=== PATIENT | female | born 1945 | race Caucasian/White ===

== ENCOUNTER 2019-05-27 11:56 | Emergency (ER) | payer MEDICARE ==
--- NOTE | 2019-05-27 12:19 | ERPHSYRPT ---
- History of Present Illness Time Seen by Provider: 05/27/19 12:19 Historian: patient, family Exam Limitations: no limitations Physician History: 73 y/o obese white female presents with 3 day h/o intermittent diarrhea. pt had mild nausea today. no sig abd pain. no fever. no vomiting. no other individuals with similar sx. pt called her pcp this am. they told her to go to ED for evaluation Timing/Duration: day(s) (3) Quality: other (no pain) Abdominal Pain Onset Location: other (none) Severity of Pain-Max: none Severity of Pain-Current: none Associated Symptoms: diarrhea, nausea, No chest pain, No shortness of breath, No vomiting Previous symptoms: no prior history Allergies/Adverse Reactions: ibuprofen [From Advil] Allergy (Verified 05/27/19 12:27) Penicillins Allergy (Verified 05/27/19 12:27) - Review of Systems Constitutional: No Symptoms Eyes: No Symptoms Ears, Nose, & Throat: No Symptoms Respiratory: No Symptoms Cardiac: No Symptoms Abdominal/Gastrointestinal: Nausea, Diarrhea Genitourinary Symptoms: No Symptoms Musculoskeletal: No Symptoms Skin: No Symptoms Neurological: No Symptoms Psychological: No Symptoms Endocrine: No Symptoms Hematologic/Lymphatic: No Symptoms Immunological/Allergic: No Symptoms All Other Systems: Reviewed and Negative - Past Medical History Pertinent Past Medical History: Yes Neurological History: No Pertinent History Cardiac History: Coronary Artery Disease, Hypertension Respiratory History: Sleep Apnea Endocrine Medical History: Diabetes Type II, Hypothyroidism Musculoskeletal History: Arthritis, Fractures Psycho-Social History: No Pertinent History - Past Surgical History Past Surgical History: Yes Musculoskeletal: Orthopedic Surgery Female Surgical History: Hysterectomy - Social History Drug Use: none - Nursing Vital Signs Nursing Vital Signs: Initial Vital Signs Temperature 98 F 05/27/19 11:57 Pulse Rate 93 H 05/27/19 11:57 Respiratory Rate 18 05/27/19 11:57 Blood Pressure 149/95 05/27/19 11:57 O2 Sat by Pulse Oximetry 95 05/27/19 11:57 Pain Scale Pain Intensity 0 - Physical Exam General Appearance: no apparent distress, alert, anxiety Eye Exam: PERRL/EOMI, eyes nml inspection Ears, Nose, Throat Exam: normal ENT inspection, moist mucous membranes Neck Exam: normal inspection, non-tender, supple, full range of motion Respiratory Exam: normal breath sounds, lungs clear, airway intact, No chest tenderness, No respiratory distress Cardiovascular Exam: regular rate/rhythm, normal heart sounds, normal peripheral pulses Gastrointestinal/Abdomen Exam: soft, normal bowel sounds, No tenderness Pelvic Exam: not done Rectal Exam: not done Back Exam: normal inspection, normal range of motion, No CVA tenderness, No vertebral tenderness Extremity Exam: normal inspection, normal range of motion, pelvis stable Neurologic Exam: alert, oriented x 3, cooperative, rouge sifter II-XII nml as tested, normal mood/affect, nml cerebellar function, nml station & gait, sensation nml Skin Exam: normal color, warm, dry Lymphatic Exam: No adenopathy SpO2 Interpretation: normal SpO2: 95 O2 Delivery: Room Air Ordered Tests: Active Orders 24 hr Category Date Time Status IV Insertion STAT Care 05/27/19 12:27 Active AMYLASE Stat Lab 05/27/19 12:40 Completed CBC W DIFF Stat Lab 05/27/19 12:40 Completed CMP Stat Lab 05/27/19 12:40 Completed CULTURE,URINE Stat Lab 05/27/19 12:27 Received LIPASE Stat Lab 05/27/19 12:40 Completed Lactic Acid Stat Lab 05/27/19 12:27 Completed UA W/RFX UR CULTURE Stat Lab 05/27/19 12:27 Completed Medication Summary Discontinued Medications Generic Name Dose Route Start Last Admin Trade Name Freq PRN Reason Stop Dose Admin Sodium Chloride 1,000 mls @ 999 mls/hr 05/27/19 12:27 05/27/19 12:43 Sodium Chloride 0.9% 1000 Ml IV 05/27/19 13:27 999 mls/hr .Q1H1M STA Administration Sodium Chloride Confirm 05/27/19 12:40 Sodium Chloride 0.9% 1000 Ml Administered 05/27/19 12:41 Dose 1,000 mls @ ud .ROUTE .STK-MED ONE Ondansetron HCl 4 mg 05/27/19 12:27 05/27/19 12:44 Zofran 4 Mg/2 Ml Vial IV 05/27/19 12:28 4 mg STAT ONE Administration Ondansetron HCl Confirm 05/27/19 12:40 Zofran 4 Mg/2 Ml Vial Administered 05/27/19 12:41 Dose 4 mg .ROUTE .STK-MED ONE Lab/Rad Data: Laboratory Result Diagrams 05/27/19 12:40 05/27/19 12:40 Laboratory Results 05/27/19 05/27/19 05/27/19 Range/Units 12:40 12:40 12:27 WBC 9.8 (4.0-10.5) K/mm3 RBC 4.73 (4.1-5.4) M/mm3 Hgb 14.7 (12.0-16.0) gm/dl Hct 43.2 (35-47) % MCV 91.3 (78-100) fl MCH 31.1 (26-32) pg MCHC 34.0 (32-36) g/dl RDW 13.6 (11.5-14.0) % Plt Count 164 (150-450) K/mm3 MPV 12.5 H (6-9.5) fl Gran % 62.9 (36.0-66.0) % Eos # (Auto) 0.15 (0-0.5) Absolute Lymphs (auto) 2.28 (1.0-4.6) Absolute Monos (auto) 1.19 (0.0-1.3) Lymphocytes % 23.3 L (24.0-44.0) % Monocytes % 12.2 H (0.0-12.0) % Eosinophils % 1.5 (0.00-5.0) % Basophils % 0.1 (0.0-0.4) % Absolute Granulocytes 6.16 (1.4-6.9) Basophils # 0.01 (0-0.4) Sodium 141 (137-145) mmol/L Potassium 3.8 (3.5-5.1) mmol/L Chloride 104 (98-107) mmol/L Carbon Dioxide 27 (22-30) mmol/L Anion Gap 14.9 (5-15) MEQ/L BUN 14 (7-17) mg/dL Creatinine 0.70 (0.52-1.04) mg/dL Estimated GFR > 60.0 ML/MIN Glucose 99 (74-106) mg/dL Lactic Acid (0.4-2.0) Calcium 9.3 (8.4-10.2) mg/dL Total Bilirubin 0.70 (0.2-1.3) mg/dL AST 53 H (14-36) U/L ALT 43 H (0-35) U/L Alkaline Phosphatase 76 (38-126) U/L Serum Total Protein 7.5 (6.3-8.2) g/dL Albumin 4.0 (3.5-5.0) g/dL Amylase 46 (30-110) U/L Lipase 71 (23-300) U/L Urine Color SUE (YELLOW) Urine Appearance SLIGHTLY CLOUDY (CLEAR) Urine pH 5.0 (5-6) Ur Specific [place] 1.026 (1.005-1.025) Urine Protein 100 (Negative) Urine Ketones TRACE (NEGATIVE) Urine Blood NEGATIVE (0-5) Vaibhav/ul Urine Nitrite NEGATIVE (NEGATIVE) Urine Bilirubin NEGATIVE (NEGATIVE) Urine Urobilinogen 2 (0-1) mg/dL Ur Leukocyte Esterase MODERATE (NEGATIVE) Urine WBC (Auto) >100 (0-5) /HPF Urine RBC (Auto) 3-5 (0-2) /HPF U Hyaline Cast (Auto) 11-25 (0-2) /LPF U Epithel Cells (Auto) FEW (FEW) /HPF Urine Bacteria (Auto) MODERATE (NEGATIVE) /HPF Urine Mucus (Auto) SLIGHT (NEGATIVE) /HPF Urine Culture Reflexed YES (NO) Urine Glucose NEGATIVE (NEGATIVE) mg/dL 05/27/19 Range/Units 12:27 WBC (4.0-10.5) K/mm3 RBC (4.1-5.4) M/mm3 Hgb (12.0-16.0) gm/dl Hct (35-47) % MCV (78-100) fl MCH (26-32) pg MCHC (32-36) g/dl RDW (11.5-14.0) % Plt Count (150-450) K/mm3 MPV (6-9.5) fl Gran % (36.0-66.0) % Eos # (Auto) (0-0.5) Absolute Lymphs (auto) (1.0-4.6) Absolute Monos (auto) (0.0-1.3) Lymphocytes % (24.0-44.0) % Monocytes % (0.0-12.0) % Eosinophils % (0.00-5.0) % Basophils % (0.0-0.4) % Absolute Granulocytes (1.4-6.9) Basophils # (0-0.4) Sodium (137-145) mmol/L Potassium (3.5-5.1) mmol/L Chloride (98-107) mmol/L Carbon Dioxide (22-30) mmol/L Anion Gap (5-15) MEQ/L BUN (7-17) mg/dL Creatinine (0.52-1.04) mg/dL Estimated GFR ML/MIN Glucose (74-106) mg/dL Lactic Acid 1.4 (0.4-2.0) Calcium (8.4-10.2) mg/dL Total Bilirubin (0.2-1.3) mg/dL AST (14-36) U/L ALT (0-35) U/L Alkaline Phosphatase (38-126) U/L Serum Total Protein (6.3-8.2) g/dL Albumin (3.5-5.0) g/dL Amylase (30-110) U/L Lipase (23-300) U/L Urine Color (YELLOW) Urine Appearance (CLEAR) Urine pH (5-6) Ur Specific [place] (1.005-1.025) Urine Protein (Negative) Urine Ketones (NEGATIVE) Urine Blood (0-5) Vaibhav/ul Urine Nitrite (NEGATIVE) Urine Bilirubin (NEGATIVE) Urine Urobilinogen (0-1) mg/dL Ur Leukocyte Esterase (NEGATIVE) Urine WBC (Auto) (0-5) /HPF Urine RBC (Auto) (0-2) /HPF U Hyaline Cast (Auto) (0-2) /LPF U Epithel Cells (Auto) (FEW) /HPF Urine Bacteria (Auto) (NEGATIVE) /HPF Urine Mucus (Auto) (NEGATIVE) /HPF Urine Culture Reflexed (NO) Urine Glucose (NEGATIVE) mg/dL - Progress Progress: improved, re-examined Counseled pt/family regarding: lab results, diagnosis, need for follow-up - Departure Departure Disposition: Home Clinical Impression: UTI (urinary tract infection), Colitis Condition: Stable Critical Care Time: No Referrals: LENORE MARTINEZ [Primary Care Provider] - Additional Instructions: drink plenty of fluids. follow up with primary doctor for further management Prescriptions: Ondansetron ODT 4 MG [Zofran Odt 4 mg] 4 mg PO Q6H PRN PRN #10 tab.rapdis PRN Reason: Vomiting Ciprofloxacin [Cipro 500 MG] 500 mg PO BID #14 tablet Metronidazole 500 mg [Flagyl 500 MG] 500 mg PO TID #21 tablet
[2019-05-27] MEDS ORDERED: Zofran 4 MG/2 ML VIAL IV ONE (12:27)
[2019-05-27] MEDS ORDERED: Sodium Chloride 0.9% 1000 ML 1,000 ML IV STA (12:27)
[2019-05-27] MEDS ORDERED: Zofran 4 MG/2 ML VIAL ONE (12:40)
[2019-05-27] MEDS ORDERED: Sodium Chloride 0.9% 1000 ML 1,000 ML ONE (12:40)
[2019-05-27 12:53] LABS: BASOPHIL % 0.1 % (0.0-0.4); Basophil (Absolute #) 0.01 (0-0.4); Eosinophil % 1.5 % (0.00-5.0); Eosinophil (Absolute #) 0.15 (0-0.5); Granulocyte Absolute (ANC) 6.16 (1.4-6.9); Granulocytes % 62.9 % (36.0-66.0); Hematocrit 43.2 % (35-47); Hemoglobin 14.7 gm/dl (12.0-16.0); Lymphocyte (Absolute #) 2.28 (1.0-4.6); Lymphocytes % 23.3 % (24.0-44.0); Mean Cell Volume 91.3 fl (78-100); Mean Corpuscular Hemoglobin 31.1 pg (26-32); Mean Platelet Volume 12.5 fl (6-9.5); Monocyte (Absolute #) 1.19 (0.0-1.3); Monocytes % 12.2 % (0.0-12.0); Platelet Count 164 K/mm3 (150-450); Red Blood Count 4.73 M/mm3 (4.1-5.4); Red Cell Distribution Width 13.6 % (11.5-14.0); White Blood Count 9.8 K/mm3 (4.0-10.5)
[2019-05-27 12:58] LABS: ALKALINE PHOSPHATASE 76 U/L (38-126); AMYLASE 46 U/L (30-110); ANION GAP 14.9 MEQ/L (5-15); BLOOD UREA NITROGEN 14 mg/dL (7-17); CHLORIDE 104 mmol/L (98-107); Calcium 9.3 mg/dL (8.4-10.2); Carbon Dioxide 27 mmol/L (22-30); Glucose 99 mg/dL (74-106); Potassium 3.8 mmol/L (3.5-5.1); SGOT/AST 53 U/L (14-36); SGPT/ALT 43 U/L (0-35); SODIUM 141 mmol/L (137-145); Total Protein 7.5 g/dL (6.3-8.2)
[2019-05-27 13:05] LABS: Appearance SLIGHTLY CLOUDY (CLEAR); Bacteria MODERATE /HPF (NEGATIVE); Bilirubin NEGATIVE (NEGATIVE); Blood NEGATIVE Ery/ul (0-5); Epithelial Cells FEW /HPF (FEW); Glucose NEGATIVE (NEGATIVE); Ketones TRACE (NEGATIVE); Leukocyte Esterase MODERATE (NEGATIVE); Mucus SLIGHT /HPF (NEGATIVE); Nitrite NEGATIVE (NEGATIVE); Protein,Urine Dip 100 (Negative); Specific Gravity 1.026 (1.005-1.025); Urobilinogen 2 mg/dL (0-1); WBC >100 /HPF (0-5)
[2019-05-27 13:07] VITALS: PULSE 89
[2019-05-27 13:36] VITALS: O2SAT 95
[2019-05-27] MEDS ORDERED: Flagyl 500 MG PO ONE (13:36)
[2019-05-27] MEDS ORDERED: Cipro 500 MG PO ONE (13:37)
[2019-05-27] MEDS ORDERED: Flagyl 500 MG ONE (13:39)
[2019-05-27] MEDS ORDERED: Cipro 500 MG ONE (13:39)
[2019-05-27 13:51] VITALS: BP 123/92
== END 2019-05-27 13:54 | disposition home or self-care (01) ==
LOC: ED 11:56
DX: N39.0 Urinary tract infection, site not specified (principal); I10 Essential (primary) hypertension; I25.10 Atherosclerotic heart disease of native coronary artery without angina pectoris; G47.30 Sleep apnea, unspecified; E03.9 Hypothyroidism, unspecified
CPT/HCPCS: 36000; 36415; 80053; 81001; 82150; 83605; 83690; 85025; 87077; 87086; 87186; 96360; 96374; 99284; J2405; A9270-GY

== ENCOUNTER 2019-06-01 09:48 | Emergency (ER) | payer MEDICARE ==
--- NOTE | 2019-06-01 10:26 | ERPHSYRPT ---
- History of Present Illness Time Seen by Provider: 06/01/19 10:18 Source: patient Exam Limitations: no limitations Patient Subjective Stated Complaint: "I have had redness and swelling in my right lower leg for past 2 days". "the pain is worse on the side of my leg. Triage Nursing Assessment: AAox3, color good, walked in. C/o pain in right lower leg. Pain mostly in lateral aspect right lower leg, some redness and swelling noted to right lower leg. Resp easy, lungs clear. States also being treated for uti and taking cipro and flagyl. Physician History: 73-year-old white female with history of coronary artery disease, high blood pressure, sleep apnea, diabetes type 2 Who states she is on Cipro for a urinary tract infection arrives with complaints of this erythema to her right lower leg pain to her right lower leg symptoms for 2-3 days. She has no fevers no nausea no vomiting. Past medical history includes coronary disease, high blood pressure, sleep apnea , diabetes type 2, hypothyroidism, anxiety, fractures. Past surgical history includes orthopedic surgery hysterectomy. Social history denies tobacco alcohol or illicit drug use Method of Injury: unknown Occurred: days ago (2-3 days) Quality: constant Severity of Pain-Max: mild Severity of Pain-Current: mild Lower Extremities Pain: leg: right Modifying Factors: Improves With: nothing Associated Symptoms: none Allergies/Adverse Reactions: ibuprofen [From Advil] Allergy (Verified 05/27/19 12:27) Penicillins Allergy (Verified 05/27/19 12:27) Home Medications: Amlodipine Besylate 5 mg [Norvasc 5 mg] 5 mg PO DAILY 06/01/19 [History] Aspirin 81 gm Chew [Baby Aspirin 81 mg Chew] 81 mg PO DAILY 06/01/19 [ History] Atorvastatin Calcium 40 mg PO DAILY 06/01/19 [History] Carvedilol 12.5 mg [Coreg 12.5 mg] 12.5 mg PO BID 06/01/19 [History] Ergocalciferol (Vitamin D2) [Vitamin D2] 1 cap PO TID 06/01/19 [History] HydrALAzine HCL 25 MG TAB [Apresoline 25 MG TABLET] 25 mg PO BID 06/01/19 [History] Hydrocodone Bit/Acetaminophen [Hydrocodon-Acetaminophen 5-325] 1 each PO Q4H PRN 06/01/19 [History] Levothyroxine Sodium 100 Mcg [Synthroid 100 Mcg] 100 mcg PO DAILY 06/01/19 [History] Losartan Potassium 100 mg PO DAILY 06/01/19 [History] Metformin HCl 500 mg [Glucophage 500 MG] 500 mg PO BIDWM 06/01/19 [History ] Raloxifene HCl 60 mg PO DAILY 06/01/19 [History] Hx Tetanus, Diphtheria Vaccination/Date Given: Yes Hx Influenza Vaccination/Date Given: Yes Hx Pneumococcal Vaccination/Date Given: Yes - Review of Systems Constitutional: No Fever, No Chills Eyes: No Symptoms Ears, Nose, & Throat: No Symptoms Respiratory: No Cough, No Dyspnea Cardiac: No Chest Pain, No Edema, No Syncope Abdominal/Gastrointestinal: No Abdominal Pain, No Nausea, No Vomiting, No Diarrhea Genitourinary Symptoms: No Dysuria Musculoskeletal: Other (erythema right lower extremity pain right lower extremity distal leg) Skin: Other (eerythema distal right leg) Neurological: No Dizziness, No Focal Weakness, No Sensory Changes Psychological: No Symptoms Endocrine: No Symptoms All Other Systems: Reviewed and Negative - Past Medical History Pertinent Past Medical History: Yes Neurological History: No Pertinent History Cardiac History: Coronary Artery Disease, Hypertension Respiratory History: Sleep Apnea Endocrine Medical History: Diabetes Type II, Hypothyroidism Musculoskeletal History: Arthritis, Fractures Psycho-Social History: No Pertinent History - Past Surgical History Past Surgical History: Yes Musculoskeletal: Orthopedic Surgery Female Surgical History: Hysterectomy - Social History Smoking Status: Never smoker Exposure to second hand smoke: No Drug Use: none Patient Lives Alone: No - Female History Hx Last Menstrual Period: hysterectomy Hx Now: No - Nursing Vital Signs Nursing Vital Signs: Initial Vital Signs Temperature 98.2 F 06/01/19 10:00 Pulse Rate 85 06/01/19 10:00 Respiratory Rate 20 06/01/19 10:00 Blood Pressure 154/84 06/01/19 10:00 O2 Sat by Pulse Oximetry 96 06/01/19 10:00 Pain Scale Pain Intensity 5 - Physical Exam General Appearance: alert Eyes, Ears, Nose, Throat Exam: moist mucous membranes Neck Exam: non-tender, supple Cardiovascular/Respiratory Exam: chest non-tender, normal breath sounds, regular rate/rhythm, no respiratory distress Gastrointestinal/Abdominal Exam: non-tender, guarding Back Exam: normal inspection, No vertebral tenderness Hips Exam: bilateral: non-tender, normal inspection, normal range of motion, no evidence of injury Legs Exam: right leg: pain (mild pain with palpation right distal leg), other ( erythema right distal lateral leg), left leg: non-tender, normal inspection, bilateral leg: normal range of motion, no evidence of injury Knees Exam: bilateral knee: non-tender, normal inspection, normal range of motion, no evidence of injury Ankle Exam: bilateral ankle: non-tender, normal inspection, normal range of motion, no evidence of injury Foot Exam: bilateral foot: non-tender, normal inspection, normal range of motion , no evidence of injury DTR - Lower Extremities Exam: ankle (R): 2+, ankle (L): 2+ Neuro/Tendon Exam: normal sensation, normal motor functions Mental Status Exam: alert, oriented x 3, cooperative Skin Exam: other (erythema right distal lateral leg) SpO2 Interpretation: normal (96%) SpO2: 96 Ordered Tests: Active Orders 24 hr Category Date Time Status BLOOD CULTURE Stat Lab 06/01/19 10:48 Received CBC W DIFF Stat Lab 06/01/19 10:40 Completed CMP Stat Lab 06/01/19 10:40 Completed D-DIMER QUANTITATION Stat Lab 06/01/19 10:40 Completed Manual Differential NC Stat Lab 06/01/19 10:40 Completed PROTIME WITH INR Stat Lab 06/01/19 10:40 Completed PTT Stat Lab 06/01/19 10:40 Completed Lab/Rad Data: Laboratory Result Diagrams 06/01/19 10:40 06/01/19 10:40 Laboratory Results 06/01/19 06/01/19 06/01/19 Range/Units 10:40 10:40 10:40 WBC 8.1 (4.0-10.5) K/mm3 RBC 4.34 (4.1-5.4) M/mm3 Hgb 13.6 (12.0-16.0) gm/dl Hct 39.5 (35-47) % MCV 91.0 (78-100) fl MCH 31.3 (26-32) pg MCHC 34.4 (32-36) g/dl RDW 13.5 (11.5-14.0) % Plt Count 149 L (150-450) K/mm3 MPV 12.2 H (6-9.5) fl Segmented Neutrophils 62 (36.0-66.0) % Band Neutrophils 2 (0.0-2.0) % Lymphocytes (Manual) 23 L (24-44) % Monocytes (Manual) 10 (0.0-12.0) % Eosinophils (Manual) 3 (0.00-3.0) % Platelet Estimate DECREASED (NORMAL) RBC Morphology NORMAL PT 14.2 H (9.95-12.35) SECONDS INR 1.25 (0.8-3.0) APTT 32.2 (25.3-37.0) SECONDS D-Dimer 340 (215-500) ng/mL Sodium 140 (137-145) mmol/L Potassium 3.6 (3.5-5.1) mmol/L Chloride 102 (98-107) mmol/L Carbon Dioxide 29 (22-30) mmol/L Anion Gap 12.9 (5-15) MEQ/L BUN 8 (7-17) mg/dL Creatinine 0.58 (0.52-1.04) mg/dL Estimated GFR > 60.0 ML/MIN Glucose 150 H (74-106) mg/dL Calcium 9.4 (8.4-10.2) mg/dL Total Bilirubin 0.50 (0.2-1.3) mg/dL AST 33 (14-36) U/L ALT 24 (0-35) U/L Alkaline Phosphatase 76 (38-126) U/L Serum Total Protein 7.1 (6.3-8.2) g/dL Albumin 3.6 (3.5-5.0) g/dL - Progress Progress: improved Progress Note: 06/01/19 12:14 Patient's labs are essentially normal d-dimer is normal. Will place patient on Bactrim. Will have patient followup with her family - Departure Departure Disposition: Home Clinical Impression: Cellulitis of right leg Condition: Fair Critical Care Time: No Referrals: LENORE MARTINEZ [Primary Care Provider] - Additional Instructions: Return home. Elevate legs. Bactrim DS one orally twice a day for 10 days. Followup with your family . You will need to have your potassium rechecked while on both Losartin and Bactrim. Return for acute distress or for severe symptoms.
[2019-06-01 11:05] LABS: Hematocrit 39.5 % (35-47); Hemoglobin 13.6 gm/dl (12.0-16.0); Mean Corpuscular Hemoglobin 31.3 pg (26-32); Mean Corpuscular Hgb Concent. 34.4 g/dl (32-36); Mean Platelet Volume 12.2 fl (6-9.5); Platelet Count 149 K/mm3 (150-450); Red Blood Count 4.34 M/mm3 (4.1-5.4); Red Cell Distribution Width 13.5 % (11.5-14.0); White Blood Count 8.1 K/mm3 (4.0-10.5)
[2019-06-01 11:22] LABS: INR 1.25 (0.8-3.0); PROTIME 14.2 SECONDS (9.95-12.35)
[2019-06-01 11:25] LABS: PTT 32.2 SECONDS (25.3-37.0)
[2019-06-01 11:34] LABS: ALBUMIN 3.6 g/dL (3.5-5.0); ALKALINE PHOSPHATASE 76 U/L (38-126); ANION GAP 12.9 MEQ/L (5-15); BLOOD UREA NITROGEN 8 mg/dL (7-17); CHLORIDE 102 mmol/L (98-107); Calcium 9.4 mg/dL (8.4-10.2); Carbon Dioxide 29 mmol/L (22-30); Creatinine 1 0.58 mg/dL (0.52-1.04); Glucose 150 mg/dL (74-106); Potassium 3.6 mmol/L (3.5-5.1); SGOT/AST 33 U/L (14-36); SGPT/ALT 24 U/L (0-35); SODIUM 140 mmol/L (137-145); Total Protein 7.1 g/dL (6.3-8.2)
[2019-06-01 11:53] LABS: BAND 2 % (0.0-2.0); Eosinophil 3 % (0.00-3.0); Lymphocytes 23 % (24-44); Monocyte 10 % (0.0-12.0); Neutrophils 62 % (36.0-66.0); Platelet Estimate DECREASED (NORMAL); Total Cells Counted 100
[2019-06-01] MEDS ORDERED: BACTRIM DS TABLET PO ONE ×2 (12:12→12:24)
[2019-06-01 13:05] VITALS: BP 128/70; PULSE 72; O2SAT 98
== END 2019-06-01 13:04 | disposition home or self-care (01) ==
LOC: ED 09:48
DX: L03.115 Cellulitis of right lower limb (principal); M79.604 Pain in right leg; I25.10 Atherosclerotic heart disease of native coronary artery without angina pectoris; I10 Essential (primary) hypertension; E11.9 Type 2 diabetes mellitus without complications; E03.9 Hypothyroidism, unspecified
CPT/HCPCS: 36000; 36415; 80053; 85025; 85379; 85610; 85730; 87040; 99284; A9270-GY

== ENCOUNTER 2025-10-30 11:18 | Observation (INO) | payer MEDICARE ==
[2025-10-30 12:45] LABS: Hematocrit 44.1 % (34.1-44.9); Hemoglobin 14.7 g/dL (11.2-15.7); Mean Corpuscular Hemoglobin 30.5 pg (25.6-32.2); Mean Corpuscular Hgb Concent. 33.3 g/dL (32.2-35.5); Platelet Count 176 x10^3/uL (182-369); Red Blood Count 4.82 x10^6/uL (3.93-5.22); White Blood Count 10.7 x10^3/uL (3.98-10.04)
[2025-10-30 13:07] LABS: Calcium 9.7 mg/dL (8.4-10.2); Carbon Dioxide 27.0 mmol/L (22-30); Creatinine 1 0.98 mg/dL (0.52-1.04); EST GLOMERULAR FILTRATION RATE 58.4 ML/MIN; Glucose 146.0 mg/dL (74-106); SGOT/AST 39.0 U/L (14-36); SGPT/ALT 25.0 U/L (0-35); Total Protein 7.9 g/dL (6.3-8.2)
--- NOTE | 2025-10-30 13:07 | PCM.HP ---
History of Present Illness - Chief Complaint Chief Complaint: weakness, dizziness Date: 10/30/25 History of Present Illness: is an 80-year-old female with a history of dementia, pituitary tumor, hypertension, sleep apnea, type II diabetes mellitus, hypothyroidism, osteoarthritis, and hyperlipidemia. She was directly admitted for evaluation of increased weakness, dizziness, and a newly detected heart murmur. She is scheduled for fdc placement on Sunday; however, due to her new symptoms, the family is unable to care for her at home and has requested that placement not be discussed with the patient at this time. Diagnostic workup has been initiated, including echocardiogram, CT head, EKG, urinalysis, CBC, CMP, and TSH. She has been placed on telemetry monitoring. Her white blood cell count is 10.7. CTA of the head demonstrated findings consistent with normal aging, including atrophy and degenerative microischemia, without evidence of acute intracranial abnormalities. - Review of Systems Constitutional: Weakness, No Fever, No Chills Eyes: No Symptoms Ears, Nose, & Throat: No Symptoms Respiratory: No Cough, No Short Of Breath Cardiac: No Chest Pain, No Edema, No Syncope Abdominal/Gastrointestinal: No Abdominal Pain, No Nausea, No Vomiting, No Diarrhea Genitourinary Symptoms: No Dysuria Musculoskeletal: No Back Pain, No Neck Pain Skin: No Rash Neurological: Dizziness, No Focal Weakness, No Sensory Changes Psychological: No Symptoms Endocrine: No Symptoms Hematologic/Lymphatic: No Symptoms Immunological/Allergic: No Symptoms Medications & Allergies Home Medications: Home Medication List Ciprofloxacin [Cipro 500 MG] 500 mg PO BID #14 tablet 05/27/19 [Rx Confirmed 06/01/19] Metronidazole 500 mg [Flagyl 500 MG] 500 mg PO TID #21 tablet 05/27/19 [Rx Confirmed 06/01/19] Amlodipine Besylate 5 mg [Norvasc 5 mg] 5 mg PO DAILY 06/01/19 [History Confirmed 06/01/19] Aspirin 81 gm Chew [Baby Aspirin 81 mg Chew] 81 mg PO DAILY 06/01/19 [History Confirmed 06/01/19] Atorvastatin Calcium 40 mg PO DAILY 06/01/19 [History Confirmed 06/01/19] Carvedilol 12.5 mg [Coreg 12.5 mg] 12.5 mg PO BID 06/01/19 [History Confirmed 06/01/19] Ergocalciferol (Vitamin D2) [Vitamin D2] 1 cap PO TID 06/01/19 [History Confi rmed 06/01/19] HydrALAzine HCL 25 MG TAB [Apresoline 25 MG TABLET] 25 mg PO BID 06/01/19 [History Confirmed 06/01/19] Hydrocodone/Acetaminophen [Hydrocodon-Acetaminophen 5-325] 1 each PO Q4H PRN 06/01/19 [History Confirmed 06/01/19] Levothyroxine Sodium 100 Mcg [Synthroid 100 Mcg] 100 mcg PO DAILY 06/01/19 [History Confirmed 06/01/19] Losartan Potassium 100 mg PO DAILY 06/01/19 [History Confirmed 06/01/19] Metformin HCl 500 mg [Glucophage 500 MG] 500 mg PO BIDWM 06/01/19 [History Confirmed 06/01/19] Raloxifene HCl 60 mg PO DAILY 06/01/19 [History Confirmed 06/01/19] Allergies/Adverse Reactions: Allergies Allergy/AdvReac Type Severity Reaction Status Date / Time ibuprofen [From Advil] Allergy Verified 05/27/19 12:27 Penicillins Allergy Verified 05/27/19 12:27 - Past Medical History Past Medical History: Yes Neurological History: No Pertinent History Cardiac History: Hypertension Respiratory History: Sleep Apnea Endocrine Medical History: Diabetes Type II, Hypothyroidism Musculoskelatal History: Osteoarthritis Pyscho-Social History: No Pertinent History Comment: CPAP AT NIGHT. LBP. R TKA SEVERAL YEARS AGO. HYSTERECTOMY - 50 YEARS AGO - Past Surgical History Past Surgical History: Yes Musculskeletal Surgical Hx: Orthopedic Surgery Female Surgical History: Hysterectomy Significant Family History: no pertinent family hx - Social History Smoking Status: Never smoker Exposure to second hand smoke: No Alcohol: None Drug Use: none - Physical Exam Vital Signs: Vital Signs - 24 hr Temp Pulse Resp BP Pulse Ox 10/30/25 11:59 98.0 F 83 20 119/61 95 General Appearance: no apparent distress, alert, obese Neurologic Exam: alert, oriented x 3, cooperative, spot cleaner II-XII nml as tested, normal mood/affect, nml cerebellar function, nml station & gait, sensation nml, motor weakness, No motor deficits Eye Exam: PERRL/EOMI, eyes nml inspection Ears, Nose, Throat Exam: normal ENT inspection, TMs normal, pharynx normal, moist mucous membranes Neck Exam: normal inspection, non-tender, supple, full range of motion Respiratory Exam: normal breath sounds, lungs clear, No respiratory distress Cardiovascular Exam: regular rate/rhythm, normal heart sounds, normal peripheral pulses, murmur (aortic) Gastrointestinal/Abdomen Exam: soft, normal bowel sounds, No tenderness, No mass Back Exam: normal inspection, normal range of motion, No CVA tenderness, No vertebral tenderness Extremity Exam: normal inspection, normal range of motion, pelvis stable Skin Exam: normal color, warm, dry, No rash Lymphatic Exam: No adenopathy Results - Labs Lab/Micro Results: Lab Results-Last 24 Hours 10/30/25 Range/Units 12:40 WBC 10.7 H (3.98-10.04) x10^3/uL RBC 4.82 (3.93-5.22) x10^6/uL Hgb 14.7 (11.2-15.7) g/dL Hct 44.1 (34.1-44.9) % MCV 91.5 (79.4-94.8) fL MCH 30.5 (25.6-32.2) pg MCHC 33.3 (32.2-35.5) g/dL RDW 13.2 (11.7-14.4) % Plt Count 176 L (182-369) x10^3/uL MPV 11.5 (9.4-12.3) fL - Radiology Impressions Radiology Exams & Impressions: Radiology Procedures Category Date Time Status ECHO W/2D AND DOPPLER [US] Routine Exams 10/30/25 12:10 Ordered HEAD WITHOUT CONTRAST [CT] Routine Exams 10/30/25 12:10 Taken Assessment/Plan (1) Dizziness Current Visit: Yes Status: Acute Assessment & Plan: - CT head: Normal aging brain including atrophy and degenerative microischemia. No new/acute intracranial abnormalities. - CBC, CMP - reviewed - PT/OT eval - UA pending - TSH - Consider MRI - New onset heart murmur- see plan - RA 95% Code(s): R42 - DIZZINESS AND GIDDINESS (2) Heart murmur Current Visit: Yes Status: Acute Assessment & Plan: - New onset - Echo - Aortic Code(s): R01.1 - CARDIAC MURMUR, UNSPECIFIED (3) Weakness Current Visit: Yes Status: Acute Assessment & Plan: - PT/OT eval - See above plans Code(s): R53.1 - WEAKNESS (4) HTN (hypertension) Current Visit: Yes Status: Chronic Assessment & Plan: - BP stable - Continue home meds Code(s): I10 - ESSENTIAL (PRIMARY) HYPERTENSION (5) Sleep apnea Current Visit: Yes Status: Chronic Assessment & Plan: - Cpap at night Code(s): G47.30 - SLEEP APNEA, UNSPECIFIED (6) Type II diabetes mellitus Current Visit: Yes Status: Chronic Qualifiers: Diabetes mellitus fdc insulin use: without fdc use Diabetes mellitus complication status: without complication Qualified Code(s): E11.9 - Type 2 diabetes mellitus without complications Assessment & Plan: - Carb consistent diet - Continue metformin - A1C 08/28/25- 5.87 (7) Hypothyroidism Current Visit: Yes Status: Chronic Assessment & Plan: - TSH - Continue synthroid Code(s): E03.9 - HYPOTHYROIDISM, UNSPECIFIED (8) Pituitary tumor Current Visit: Yes Status: Chronic Assessment & Plan: - Pt has an upcoming appointment in [place] for further evaluation VTE: SCD's Next of KIN: Daughter D/C plan: 2-3 days Code status: Full Plan of care time: > 50 minutes
--- NOTE | 2025-10-30 13:13 | XRAY ---
Indication: Dizziness. Weakness. Multiple contiguous axial images obtained through the head without contrast. Comparison: MRI brain September 16, 2025. There is age-appropriate global atrophy and mild periventricular degenerative microischemia bilaterally. No acute intracranial hemorrhage, abnormal extra-axial fluid collection, or mass effect. 4th ventricle is midline without hydrocephalus. Bony calvarium intact. Visualized paranasal sinuses and mastoid air cells are clear. Impression: Normal aging brain including atrophy and degenerative microischemia. No new/acute intracranial abnormalities.
[2025-10-30 13:16] LABS: Potassium 4.7 mmol/L (3.5-5.1)
[2025-10-30] MEDS ORDERED: HUMALOG SQ PRN (13:40)
[2025-10-30] MEDS ORDERED: TYLENOL 325 MG PO PRN (14:10)
[2025-10-30] MEDS ORDERED: MEDICATION INTERVENTION MC SCH ×2 (14:45)
[2025-10-30] MEDS: LEVOFLOXACIN 750MG/150ML D5W 750 MG/150 ML BAG IV SCH (16:10)
[2025-10-30] MEDS: Cymbalta 30 MG Capsule PO SCH (16:14)
[2025-10-30] MEDS: Mirapex 0.5 MG Tablet PO SCH (16:16)
[2025-10-30] MEDS: FISH OIL 1,000 MG CAPSULE PO SCH (16:16)
[2025-10-30] MEDS: NORVASC 5 MG PO SCH (21:57)
[2025-10-30] MEDS: Coreg PO SCH (21:57)
[2025-10-30] MEDS: Apresoline 25 MG TABLET PO SCH (21:57)
[2025-10-30] MEDS: Namenda 5 MG PO SCH (21:57)
[2025-10-30] MEDS: Bactroban OINTMENT TOP SCH (21:58)
--- NOTE | 2025-10-31 01:09 | XRAY ---
CLINICAL HISTORY: fpc placement COMPARISON: No prior studies available for comparison. TECHNIQUE: X-ray images of the chest were obtained in posteroanterior (PA) and lateral projections. FINDINGS: Pulmonary Parenchyma: Bilateral faint reticular opacities are more evident basally, possibly denoting fibrotic changes/bands of atelectasis. No pulmonary nodules are identified. No evidence of pleural effusion or pleural thickening. Heart and Mediastinum: The heart size and shape are normal. No mediastinal widening or masses. No hilar or mediastinal lymphadenopathy. Bony Thorax: The bony thorax appears intact without fractures or deformities. Thoracic spine spondylotic changes are noted. Bilateral shoulder joint degenerative changes are noted. Soft Tissues: The soft tissues overlying the chest wall are unremarkable. IMPRESSION: 1. Bilateral faint reticular opacities are more evident basally, possibly denoting fibrotic changes/bands of atelectasis. 2. Thoracic spine spondylotic changes are noted. 3. Bilateral shoulder joint degenerative changes are noted. Electronically Signed by: Sourav Burnett MD. (10/31/2025 01:09:22 EST)
[2025-10-31 05:52] LABS: Hematocrit 42.4 % (34.1-44.9); Hemoglobin 13.8 g/dL (11.2-15.7); Mean Corpuscular Hemoglobin 30.4 pg (25.6-32.2); Mean Corpuscular Hgb Concent. 32.5 g/dL (32.2-35.5); Platelet Count 159 x10^3/uL (182-369); Red Blood Count 4.54 x10^6/uL (3.93-5.22); White Blood Count 10.1 x10^3/uL (3.98-10.04)
[2025-10-31 06:11] LABS: Calcium 9.7 mg/dL (8.4-10.2); Carbon Dioxide 30.0 mmol/L (22-30); Creatinine 1 1.05 mg/dL (0.52-1.04); EST GLOMERULAR FILTRATION RATE 53.7 ML/MIN; Glucose 158.0 mg/dL (74-106); Potassium 4.0 mmol/L (3.5-5.1); SGOT/AST 31.0 U/L (14-36); SGPT/ALT 22.0 U/L (0-35); Total Protein 7.3 g/dL (6.3-8.2)
[2025-10-31] MEDS: Glucophage 500 MG PO SCH (08:15)
[2025-10-31] MEDS: VITAMIN D PO SCH (09:57)
[2025-10-31] MEDS: Aricept 10 MG PO SCH (09:59)
[2025-10-31] MEDS: Klor Con PO SCH (09:59)
[2025-10-31] MEDS ORDERED: NON-FORMULARY ITEM (Mecobalamin [B12 Active] 1,000 MCG Tab.Chew) PO SCH (10:00)
[2025-10-31] MEDS: SYNTHROID 125 MCG PO SCH (10:03)
[2025-10-31] MEDS: Aldactone 25 MG PO SCH (10:03)
[2025-10-31] MEDS: Cozaar 50 MG PO SCH (11:50)
--- NOTE | 2025-10-31 12:18 | PCM.NOTE ---
Date and Time: 10/31/25 1213 Subjective Assessment: 10/30/25 is an 80-year-old female with a history of dementia, pituitary tumor, hypertension, sleep apnea, type II diabetes mellitus, hypothyroidism, osteoarthritis, and hyperlipidemia. She was directly admitted for evaluation of increased weakness, dizziness, and a newly detected heart murmur. She is scheduled for mcc placement on Sunday; however, due to her new symptoms, the family is unable to care for her at home and has requested that placement not be discussed with the patient at this time. Diagnostic workup has been initiated, including echocardiogram, CT head, EKG, urinalysis, CBC, CMP, and TSH. She has been placed on telemetry monitoring. Her white blood cell count is 10.7. CTA of the head demonstrated findings consistent with normal aging, including atrophy and degenerative microischemia, without evidence of acute intracranial abnormalities. 10/31/25 The patient is resting comfortably in the chair this morning and reports doing well, with no dizziness or weakness. Urine culture results remain pending, and she continues on Levaquin for treatment of a complicated UTI. Creatinine is slightly elevated at 1.05. Echocardiogram shows an ejection fraction of 61% with mild diastolic dysfunction. The patient refused use of the PureWick overnight, stating that the noise was bothersome and that she was able to get up to the restroom independently without difficulty. Discharge is anticipated on Sunday, pending culture results and PT/OT eval. When asked, the patient expressed that she does not wish to go to a rehab facility or mcc; however, per family request, her daughter plans to take her to a facility privately on Sunday. This was not discussed per daughter request. - Review of Systems Constitutional: No Fever, No Chills Eyes: No Symptoms Ears, Nose, & Throat: No Symptoms Respiratory: No Cough, No Short Of Breath Cardiac: No Chest Pain, No Edema, No Syncope Abdominal/Gastrointestinal: No Abdominal Pain, No Nausea, No Vomiting, No Diarrhea Genitourinary Symptoms: No Dysuria Musculoskeletal: No Back Pain, No Neck Pain Skin: No Rash Neurological: No Dizziness, No Focal Weakness, No Sensory Changes Psychological: No Symptoms Endocrine: No Symptoms Hematologic/Lymphatic: No Symptoms Immunological/Allergic: No Symptoms Objective Exam General Appearance: no apparent distress, alert, obese Neurologic Exam: alert, oriented x 3, cooperative, normal mood/affect, nml cerebellar function, sensation nml, No motor deficits Skin Exam: normal color, warm, dry Eye Exam: PERRL, EOMI, eyes nml inspection Ears, Nose, Throat Exam: normal ENT inspection, pharynx normal, moist mucous membranes Neck Exam: normal inspection, non-tender, supple, full range of motion Respiratory Exam: normal breath sounds, lungs clear, No respiratory distress Cardiovascular Exam: regular rate/rhythm, normal heart sounds Gastrointestinal/Abdomen Exam: soft, No tenderness, No mass Extremity Exam: normal inspection, normal range of motion Back Exam: normal inspection, normal range of motion, No CVA tenderness, No vertebral tenderness Pelvic Exam: deferred Rectal Exam: deferred Objective Data Vital Signs: Vital Signs - 24 hr Temp Pulse Resp BP Pulse Ox 10/31/25 11:38 98.0 F 80 16 125/53 94 L 10/31/25 06:57 97.9 F 63 18 108/57 96 10/31/25 04:00 98.1 F 76 18 123/62 93 L 10/31/25 00:00 98.2 F 70 18 116/56 94 L 10/30/25 19:52 98.1 F 82 18 115/59 92 L 10/30/25 16:00 98.8 F 66 18 112/58 93 L 10/30/25 13:03 98.0 F 83 18 119/61 95 Pain Assessment - Last Documented Pain Intensity 0 Intake and Output: Intake & Output 10/29/25 10/30/25 10/31/25 11/01/25 11:59 11:59 11:59 11:59 Intake Total 840 Balance 840 Weight 115.1 kg Lab Results: Lab Results-Last 24 Hours 10/30/25 10/30/25 10/30/25 Range/Units 12:40 12:40 12:40 WBC 10.7 H (3.98-10.04) x10^3/uL RBC 4.82 (3.93-5.22) x10^6/uL Hgb 14.7 (11.2-15.7) g/dL Hct 44.1 (34.1-44.9) % MCV 91.5 (79.4-94.8) fL MCH 30.5 (25.6-32.2) pg MCHC 33.3 (32.2-35.5) g/dL RDW 13.2 (11.7-14.4) % Plt Count 176 L (182-369) x10^3/uL MPV 11.5 (9.4-12.3) fL Sodium 137 (135-145) mmol/L Potassium 4.7 (3.5-5.1) mmol/L Chloride 102 (98-107) mmol/L Carbon Dioxide 27 (22-30) mmol/L Anion Gap 13.4 (5-15) MEQ/L BUN 23 H (7-17) mg/dL Creatinine 0.98 (0.52-1.04) mg/dL Estimated GFR 58.4 ML/MIN Glucose 146 H (74-106) mg/dL POC Glucometer (74 to 106) mg/dL Calcium 9.7 (8.4-10.2) mg/dL Total Bilirubin 0.60 (0.2-1.3) mg/dL AST 39 H (14-36) U/L ALT 25 (0-35) U/L Alkaline Phosphatase 97 (38-126) U/L NT-Pro-B Natriuret Pep (<300) pg/mL Serum Total Protein 7.9 (6.3-8.2) g/dL Albumin 4.2 (3.5-5.0) g/dL TSH 3rd Generation 2.453 (0.470-4.680) mIU/L 10/30/25 10/30/25 10/31/25 Range/Units 16:23 21:04 05:47 WBC 10.1 H (3.98-10.04) x10^3/uL RBC 4.54 (3.93-5.22) x10^6/uL Hgb 13.8 (11.2-15.7) g/dL Hct 42.4 (34.1-44.9) % MCV 93.4 (79.4-94.8) fL MCH 30.4 (25.6-32.2) pg MCHC 32.5 (32.2-35.5) g/dL RDW 13.4 (11.7-14.4) % Plt Count 159 L (182-369) x10^3/uL MPV 11.9 (9.4-12.3) fL Sodium (135-145) mmol/L Potassium (3.5-5.1) mmol/L Chloride (98-107) mmol/L Carbon Dioxide (22-30) mmol/L Anion Gap (5-15) MEQ/L BUN (7-17) mg/dL Creatinine (0.52-1.04) mg/dL Estimated GFR ML/MIN Glucose (74-106) mg/dL POC Glucometer 150 H 131 H (74 to 106) mg/dL Calcium (8.4-10.2) mg/dL Total Bilirubin (0.2-1.3) mg/dL AST (14-36) U/L ALT (0-35) U/L Alkaline Phosphatase (38-126) U/L NT-Pro-B Natriuret Pep (<300) pg/mL Serum Total Protein (6.3-8.2) g/dL Albumin (3.5-5.0) g/dL TSH 3rd Generation (0.470-4.680) mIU/L 10/31/25 10/31/25 10/31/25 Range/Units 05:47 05:47 07:13 WBC (3.98-10.04) x10^3/uL RBC (3.93-5.22) x10^6/uL Hgb (11.2-15.7) g/dL Hct (34.1-44.9) % MCV (79.4-94.8) fL MCH (25.6-32.2) pg MCHC (32.2-35.5) g/dL RDW (11.7-14.4) % Plt Count (182-369) x10^3/uL MPV (9.4-12.3) fL Sodium 136 (135-145) mmol/L Potassium 4.0 (3.5-5.1) mmol/L Chloride 99 (98-107) mmol/L Carbon Dioxide 30 (22-30) mmol/L Anion Gap 11.4 (5-15) MEQ/L BUN 22 H (7-17) mg/dL Creatinine 1.05 H (0.52-1.04) mg/dL Estimated GFR 53.7 ML/MIN Glucose 158 H (74-106) mg/dL POC Glucometer 150 H (74 to 106) mg/dL Calcium 9.7 (8.4-10.2) mg/dL Total Bilirubin 0.60 (0.2-1.3) mg/dL AST 31 (14-36) U/L ALT 22 (0-35) U/L Alkaline Phosphatase 101 (38-126) U/L NT-Pro-B Natriuret Pep 93.1 (<300) pg/mL Serum Total Protein 7.3 (6.3-8.2) g/dL Albumin 3.8 (3.5-5.0) g/dL TSH 3rd Generation (0.470-4.680) mIU/L 10/31/25 Range/Units 11:23 WBC (3.98-10.04) x10^3/uL RBC (3.93-5.22) x10^6/uL Hgb (11.2-15.7) g/dL Hct (34.1-44.9) % MCV (79.4-94.8) fL MCH (25.6-32.2) pg MCHC (32.2-35.5) g/dL RDW (11.7-14.4) % Plt Count (182-369) x10^3/uL MPV (9.4-12.3) fL Sodium (135-145) mmol/L Potassium (3.5-5.1) mmol/L Chloride (98-107) mmol/L Carbon Dioxide (22-30) mmol/L Anion Gap (5-15) MEQ/L BUN (7-17) mg/dL Creatinine (0.52-1.04) mg/dL Estimated GFR ML/MIN Glucose (74-106) mg/dL POC Glucometer 148 H (74 to 106) mg/dL Calcium (8.4-10.2) mg/dL Total Bilirubin (0.2-1.3) mg/dL AST (14-36) U/L ALT (0-35) U/L Alkaline Phosphatase (38-126) U/L NT-Pro-B Natriuret Pep (<300) pg/mL Serum Total Protein (6.3-8.2) g/dL Albumin (3.5-5.0) g/dL TSH 3rd Generation (0.470-4.680) mIU/L Radiology Exams: Radiology Procedures Category Date Time Status CHEST 2 VIEWS (PA AND LAT) Routine Exams 10/30/25 19:41 Completed ECHO W/2D AND DOPPLER [US] Routine Exams 10/30/25 12:10 Taken HEAD WITHOUT CONTRAST [CT] Routine Exams 10/30/25 12:10 Completed Medications: Medications Generic Name Dose Route Start Last Admin Trade Name Freq PRN Reason Stop Dose Admin Acetaminophen 650 mg 10/30/25 14:10 Acetaminophen 325 Mg Tablet PO 11/29/25 14:09 Q6H PRN PRN PAIN AND/OR FEVER Amlodipine Besylate 2.5 mg 10/30/25 22:00 10/31/25 11:50 Amlodipine Besylate 5 Mg Tablet PO 11/29/25 21:59 Not Given BID BTEO Carvedilol 6.25 mg 10/30/25 22:00 10/31/25 10:00 Carvedilol 6.25 Mg Tablet PO 11/29/25 21:59 6.25 mg BID BETO Administration Cholecalciferol 2,000 unit 10/31/25 10:00 10/31/25 09:57 Cholecalciferol (Vitamin D3) 1000 Unit Tablet PO 11/30/25 09:59 2,000 unit DAILY BETO Administration Donepezil HCl 10 mg 10/31/25 10:00 10/31/25 09:59 Donepezil Hcl 10 Mg Tablet PO 11/30/25 09:59 10 mg DAILY BETO Administration Duloxetine HCl 60 mg 10/30/25 15:00 10/31/25 09:58 Duloxetine Hcl 30 Mg Cap PO 11/29/25 14:59 60 mg DAILY BETO Administration Fish Oil 1,000 mg 10/30/25 15:00 10/31/25 10:00 [place]-3 Fatty Acids/Fish Oil 1000 Mg Capsule PO 11/29/25 14:59 1,000 mg DAILY BETO Administration Hydralazine HCl 50 mg 10/30/25 22:00 10/31/25 11:50 Hydralazine Hcl 25 Mg Tablet PO 11/29/25 21:59 Not Given BID BETO Levofloxacin/Dextrose 750 mg in 150 mls @ 100 mls/hr 10/30/25 15:00 10/30/25 16:10 Levofloxacin 750mg/150ml D5w IV 11/29/25 14:59 100 mls/hr Q48H BETO Administration Insulin Human Lispro 0 unit 10/30/25 13:40 Insulin Lispro 1 Unit SQ 11/29/25 13:39 UD PRN HYPERGLYCEMIA Levothyroxine Sodium 125 mcg 10/31/25 10:00 10/31/25 10:03 Levothyroxine Sodium 125 Mcg Tablet PO 11/30/25 09:59 125 mcg DAILY BETO Administration Losartan Potassium 100 mg 10/31/25 10:00 10/31/25 11:50 Losartan Potassium 50 Mg Tablet PO 11/30/25 09:59 Not Given DAILY BETO Memantine 10 mg 10/30/25 22:00 10/31/25 10:00 Memantine Hcl 5 Mg Tablet PO 11/29/25 21:59 10 mg BID BETO Administration Metformin HCl 500 mg 10/31/25 08:00 10/31/25 08:15 Metformin Hcl 500 Mg Tablet PO 11/30/25 07:59 500 mg BREAKFAST BETO Administration Miscellaneous Information 1 each 10/30/25 14:45 Medication Intervention 1 Each Each 11/29/25 14:44 .RN TO CHECK BETO Miscellaneous Information 1 each 10/30/25 14:45 Medication Intervention 1 Each Each 11/29/25 14:44 .RN TO CHECK BETO Mupirocin 0 gm 10/30/25 22:00 10/31/25 10:03 Mupirocin 22 Gm Tube Ointment TOP 11/29/25 21:59 1 gm BID BETO Administration Potassium Chloride 10 meq 10/31/25 10:00 10/31/25 09:59 Potassium Chloride Tab 10 Meq Tab PO 11/30/25 09:59 10 meq DAILY BETO Administration Pramipexole Dihydrochloride 0.25 mg 10/30/25 15:00 10/31/25 09:58 Pramipexole Di-Hcl 0.5 Mg Tab PO 11/29/25 14:59 0.25 mg DAILY BETO Administration Spironolactone 25 mg 10/31/25 10:00 10/31/25 10:03 Spironolactone 25 Mg Tablet PO 11/30/25 09:59 25 mg DAILY BETO Administration Multi-Disciplinary Progress Notes: Multi-Disciplinary Progress Notes 10/31/25 03:49 Radiology Note by LANDRY PARRY TRANSTHORACIC ECHOCARDIOGRAM 10/30/2025 1. Moderately dilated left atrium. Other chamber sizes are normal. 2. Mild concentric left ventricular hypertrophy. 3. Normal left ventricular systolic function without focal wall motion abnormalities. Estimated EF 61%. 4. Mild diastolic dysfunction. 5. Normal right ventricular systolic function. 6. Moderate mitral annular calcification. Valves are otherwise structurally normal. 7. Doppler: Mild mitral and tricuspid regurgitation. 8. Mild pulmomary hypertension with an estimated PA systolic pressure 35 mmHg. 9. Mildly elevated right atrial pressure (8 mmHg) 10. No pericardial effusion. Landry Parry MD [facility] Initialized on 10/31/25 03:49 - END OF NOTE 10/30/25 14:41 Pharmacy Note by Vickey Clemens Calculated crcl is 35ml/min. Will change Levaquin to q48h per renal dosing po licy. Initialized on 10/30/25 14:41 - END OF NOTE Assessment/Plan (1) UTI (urinary tract infection) Current Visit: Yes Status: Acute Assessment & Plan: - UC pending from OP - UA reviewed - Levaquin - Complicated UTI as has repeat infections - Would benefit from urology OP f/u - Old culture results/ labs reviewed - CBC, CMP reviewed Code(s): N39.0 - URINARY TRACT INFECTION, SITE NOT SPECIFIED (2) Dizziness Current Visit: Yes Status: Acute Code(s): R42 - DIZZINESS AND GIDDINESS (3) Heart murmur Current Visit: Yes Status: Acute Code(s): R01.1 - CARDIAC MURMUR, UNSPECIFIED (4) Weakness Current Visit: Yes Status: Acute Code(s): R53.1 - WEAKNESS (5) HTN (hypertension) Current Visit: Yes Status: Chronic Code(s): I10 - ESSENTIAL (PRIMARY) HYPERTENSION (6) Sleep apnea Current Visit: Yes Status: Chronic Code(s): G47.30 - SLEEP APNEA, UNSPECIFIED (7) Type II diabetes mellitus Current Visit: Yes Status: Chronic Qualifiers: Diabetes mellitus intermediate project manager insulin use: without intermediate project manager use Diabetes louann litus complication status: without complication Qualified Code(s): E11.9 - Type 2 diabetes mellitus without complications (8) Hypothyroidism Current Visit: Yes Status: Chronic Code(s): E03.9 - HYPOTHYROIDISM, UNSPECIFIED (9) Pituitary tumor Current Visit: Yes Status: Chronic Assessment & Plan: (2) Dizziness Current Visit: Yes Status: Acute Assessment & Plan: - CT head: Normal aging brain including atrophy and degenerative microischemia. No new/acute intracranial abnormalities. - CBC, CMP - reviewed - PT/OT eval - UA pending - TSH - Consider MRI - New onset heart murmur- see plan - RA 95% 10/31 - Resolved Code(s): R42 - DIZZINESS AND GIDDINESS (3) Heart murmur Current Visit: Yes Status: Acute Assessment & Plan: - New onset - Echo- EF 61% with mild diastolic dysfunction - Aortic Code(s): R01.1 - CARDIAC MURMUR, UNSPECIFIED (4) Weakness Current Visit: Yes Status: Acute Assessment & Plan: - PT/OT eval - See above plans 10/31 - Improved today - CBC, CMP reviewed Code(s): R53.1 - WEAKNESS (5) HTN (hypertension) Current Visit: Yes Status: Chronic Assessment & Plan: - BP stable - Continue home meds Code(s): I10 - ESSENTIAL (PRIMARY) HYPERTENSION (6) Sleep apnea Current Visit: Yes Status: Chronic Assessment & Plan: - Cpap at night Code(s): G47.30 - SLEEP APNEA, UNSPECIFIED (7) Type II diabetes mellitus Current Visit: Yes Status: Chronic Qualifiers: Diabetes mellitus intermediate project manager insulin use: without senior care use Diabetes mellitus complication status: without complication Qualified Code(s): E11.9 - Type 2 diabetes mellitus without complications Assessment & Plan: - Carb consistent diet - Continue metformin - A1C 08/28/25- 5.87 (8) Hypothyroidism Current Visit: Yes Status: Chronic Assessment & Plan: - TSH normal - Continue synthroid Code(s): E03.9 - HYPOTHYROIDISM, UNSPECIFIED (9) Pituitary tumor Current Visit: Yes Status: Chronic Assessment & Plan: - Pt has an upcoming appointment in [place] for further evaluation VTE: SCD's Next of KIN: Daughter D/C plan: Sunday Code status: Full Plan of care time: > 40 minutes
[2025-11-01 05:47] VITALS: RESP 16
[2025-11-01 06:08] LABS: Hematocrit 44.7 % (34.1-44.9); Hemoglobin 14.7 g/dL (11.2-15.7); Mean Corpuscular Hemoglobin 30.2 pg (25.6-32.2); Mean Corpuscular Hgb Concent. 32.9 g/dL (32.2-35.5); Platelet Count 183 x10^3/uL (182-369); Red Blood Count 4.87 x10^6/uL (3.93-5.22); White Blood Count 9.1 x10^3/uL (3.98-10.04)
[2025-11-01 06:28] LABS: Calcium 9.6 mg/dL (8.4-10.2); Carbon Dioxide 22.0 mmol/L (22-30); Creatinine 1 0.92 mg/dL (0.52-1.04); EST GLOMERULAR FILTRATION RATE 62.9 ML/MIN; Glucose 155.0 mg/dL (74-106); Potassium 4.0 mmol/L (3.5-5.1); SGOT/AST 38.0 U/L (14-36); SGPT/ALT 28.0 U/L (0-35); Total Protein 7.6 g/dL (6.3-8.2)
--- NOTE | 2025-11-01 09:10 | PCM.DS ---
Discharge Summary Date of Admission: 10/30/25 11:30 Date of Discharge: 11/01/25 Admitting Physician: KRANTHI SMITH MD Primary Care Provider: SEVERINO CONTRERAS DO Allergies Allergies ibuprofen [From Advil] Allergy (Verified 05/27/19 12:27) Penicillins Allergy (Verified 05/27/19 12:27) Hospital Summary - Hospital Course Hospital Course: 12/31/24 is an 80 year old female with a history of dementia, pituitary tumor, hypertension, sleep apnea, type II diabetes mellitus, hypothyroidism, osteoarthritis, and hyperlipidemia who was directly admitted on 10/30/25 for evaluation of increased weakness, dizziness, and a newly detected heart murmur. Initial workup included echocardiogram, CT head, EKG, urinalysis, CBC, CMP, and TSH, with CTA of the head showing findings consistent with normal aging without acute abnormalities. On 10/31/25, she was resting comfortably and reported no dizziness or weakness. Urine culture remained pending, and she continued on Levaquin for a complicated UTI. Echocardiogram revealed an ejection fraction of 61% with mild diastolic dysfunction. She refused PureWick overnight but was able to ambulate to the restroom independently. Discharge was anticipated for Sunday pending culture results and PT/OT evaluation, with plans for intermediate placement per family request, though this was not discussed with the patient. On 11/01/25, she reported feeling much better, ambulating independently and showering without dizziness or weakness. Her recent symptoms were attributed to blood pressure medications in combination with a urinary tract infection. She is now stable for discharge, with plans to continue outpatient antibiotics for UTI. IV fluids were started for mild dehydration, with anion gap at 16.7, and she was counseled to increase water intake rather than tea. Blood pressure medications will remain on hold, and she was instructed to keep a log of her blood pressures at home and follow up with her primary care physician, bringing the log to her appointment. At discharge, she denied any further concerns. - Vitals & Intake/Output Vital Signs: Vital Signs Temperature 97.7 F 11/01/25 06:38 Pulse Rate 80 11/01/25 06:38 Respiratory Rate 16 11/01/25 06:38 Blood Pressure 106/58 11/01/25 06:38 O2 Sat by Pulse Oximetry 94 L 12/07/25 06:38 Intake & Output: Intake & Output 10/29/25 10/30/25 10/31/25 11/01/25 11:59 11:59 11:59 11:59 Intake Total 840 1080 Balance 840 1080 Weight 115.1 kg - Lab Result Diagrams: 11/01/25 05:45 11/01/25 05:45 Lab Results-Last 24 Hrs: Lab Results-Last 24 Hours 10/31/25 10/31/25 10/31/25 Range/Units 05:47 11:23 16:20 WBC (3.98-10.04) x10^3/uL RBC (3.93-5.22) x10^6/uL Hgb (11.2-15.7) g/dL Hct (34.1-44.9) % MCV (79.4-94.8) fL MCH (25.6-32.2) pg MCHC (32.2-35.5) g/dL RDW (11.7-14.4) % Plt Count (182-369) x10^3/uL MPV (9.4-12.3) fL Sodium (135-145) mmol/L Potassium (3.5-5.1) mmol/L Chloride (98-107) mmol/L Carbon Dioxide (22-30) mmol/L Anion Gap (5-15) MEQ/L BUN (7-17) mg/dL Creatinine (0.52-1.04) mg/dL Estimated GFR ML/MIN Glucose (74-106) mg/dL POC Glucometer 148 H 140 H (74 to 106) mg/dL Calcium (8.4-10.2) mg/dL Total Bilirubin (0.2-1.3) mg/dL AST (14-36) U/L ALT (0-35) U/L Alkaline Phosphatase (38-126) U/L NT-Pro-B Natriuret Pep 93.1 (<300) pg/mL Serum Total Protein (6.3-8.2) g/dL Albumin (3.5-5.0) g/dL 10/31/25 11/01/25 11/01/25 Range/Units 21:14 05:45 05:45 WBC 9.1 (3.98-10.04) x10^3/uL RBC 4.87 (3.93-5.22) x10^6/uL Hgb 14.7 (11.2-15.7) g/dL Hct 44.7 (34.1-44.9) % MCV 91.8 (79.4-94.8) fL MCH 30.2 (25.6-32.2) pg MCHC 32.9 (32.2-35.5) g/dL RDW 13.3 (11.7-14.4) % Plt Count 183 (182-369) x10^3/uL MPV 11.6 (9.4-12.3) fL Sodium 137 (135-145) mmol/L Potassium 4.0 (3.5-5.1) mmol/L Chloride 102 (98-107) mmol/L Carbon Dioxide 22 (22-30) mmol/L Anion Gap 16.7 H (5-15) MEQ/L BUN 20 H (7-17) mg/dL Creatinine 0.92 (0.52-1.04) mg/dL Estimated GFR 62.9 ML/MIN Glucose 155 H (74-106) mg/dL POC Glucometer 131 H (74 to 106) mg/dL Calcium 9.6 (8.4-10.2) mg/dL Total Bilirubin 0.50 (0.2-1.3) mg/dL AST 38 H (14-36) U/L ALT 28 (0-35) U/L Alkaline Phosphatase 112 (38-126) U/L NT-Pro-B Natriuret Pep (<300) pg/mL Serum Total Protein 7.6 (6.3-8.2) g/dL Albumin 4.1 (3.5-5.0) g/dL 11/01/25 Range/Units 07:25 WBC (3.98-10.04) x10^3/uL RBC (3.93-5.22) x10^6/uL Hgb (11.2-15.7) g/dL Hct (34.1-44.9) % MCV (79.4-94.8) fL MCH (25.6-32.2) pg MCHC (32.2-35.5) g/dL RDW (11.7-14.4) % Plt Count (182-369) x10^3/uL MPV (9.4-12.3) fL Sodium (135-145) mmol/L Potassium (3.5-5.1) mmol/L Chloride (98-107) mmol/L Carbon Dioxide (22-30) mmol/L Anion Gap (5-15) MEQ/L BUN (7-17) mg/dL Creatinine (0.52-1.04) mg/dL Estimated GFR ML/MIN Glucose (74-106) mg/dL POC Glucometer 156 H (74 to 106) mg/dL Calcium (8.4-10.2) mg/dL Total Bilirubin (0.2-1.3) mg/dL AST (14-36) U/L ALT (0-35) U/L Alkaline Phosphatase (38-126) U/L NT-Pro-B Natriuret Pep (<300) pg/mL Serum Total Protein (6.3-8.2) g/dL Albumin (3.5-5.0) g/dL Micro Results-Entire Visit: Accuchecks Date 11/01/25 Date 10/31/25 Date 10/31/25 Time 07:32 Time 21:00 Time 11:36 - Radiology Exams Ordered Rad Exams-Entire Visit: Radiology Procedures Category Date Time Status CHEST 2 VIEWS (PA AND LAT) Routine Exams 10/30/25 19:41 Completed ECHO W/2D AND DOPPLER [US] Routine Exams 10/30/25 12:10 Taken HEAD WITHOUT CONTRAST [CT] Routine Exams 10/30/25 12:10 Completed - Procedures and Test Procedures and Tests throughout Hospitalization: Therapy Orders & Screens 10/30/25 12:12 PT Eval & Treat (MD Order) ONCE Reason for Eval:: weakness, dizziness Diagnosis: weakness, dizziness OT Eval and Treat (MD Order) ONCE Comment: Physician Instructions: Reason For Exam: Evaluate: Yes Treat: Yes Diagnosis: weakness, dizziness 10/30/25 13:06 EKG STAT Comment: Diagnosis: weakness, dizziness 10/30/25 13:07 RT Miscellaneous Order ROUTINE Comment: Physician Instructions: Reason For Exam: CPAP at night Diagnosis: weakness, dizziness 10/30/25 13:50 OT Screen per Nursing Assess ONCE Comment: Protocol Order Physician Instructions: Greater than 3 points order OT Admission Screening Reason For Exam: Triggered on Admission Diagnosis: weakness, dizziness Open Wound/Cellutlitis/Pressure Ulcers: No Acute Fx/ORIF/Change in wt bearing status: No Severe MUSCULOSKELETAL pain: No ADL Dysfunction: Yes: dementia, weakness Acute CVA w/Hemiparesis/Hemiplegia: No Decreased Functional Mobility/Strength: Yes Sprain/Strain: No Acute Post-op Mobility Dysfunction: No Total Points: 4 PT Screen per Nursing Assess ONCE Comment: Protocol Order Physician Instructions: Greater than 3 points order PT Admission Screenin Reason For Exam: Triggered on Admission Diagnosis: weakness, dizziness Open Wound/Cellutlitis/Pressure Ulcers: No Acute Fx/ORIF/Change in wt bearing status: No Severe MUSCULOSKELETAL pain: No ADL Dysfunction: Yes: dementia, weakness Acute CVA w/Hemiparesis/Hemiplegia: No Decreased Functional Mobility/Strength: Yes Sprain/Strain: No Acute Post-op Mobility Dysfunction: No Total Points: 4 10/30/25 18:05 BiPap/CPAP ROUTINE Comment: Diagnosis: weakness, dizziness Discharge Exam General Appearance: no apparent distress, alert, obese Neurologic Exam: alert, oriented x 3, cooperative, normal mood/affect, nml cerebellar function, sensation nml, No motor deficits Eye Exam: PERRL, EOMI, eyes nml inspection Ears, Nose, Throat Exam: normal ENT inspection, pharynx normal, moist mucous membranes Neck Exam: normal inspection, non-tender, supple, full range of motion Respiratory Exam: normal breath sounds, lungs clear, No respiratory distress Cardiovascular Exam: regular rate/rhythm, normal heart sounds Gastrointestinal/Abdomen Exam: soft, No tenderness, No mass Pelvic Exam: deferred Rectal Exam: deferred Back Exam: normal inspection, normal range of motion, No CVA tenderness, No vertebral tenderness Extremity Exam: normal inspection, normal range of motion Skin Exam: normal color, warm, dry Final Diagnosis/Problem List - Final Discharge Diagnosis/Problem (1) UTI (urinary tract infection) Current Visit: Yes Status: Acute Code(s): N39.0 - URINARY TRACT INFECTION, SITE NOT SPECIFIED (2) Dizziness Current Visit: Yes Status: Acute Code(s): R42 - DIZZINESS AND GIDDINESS (3) Heart murmur Current Visit: Yes Status: Acute Code(s): R01.1 - CARDIAC MURMUR, UNSPECIFIED (4) Weakness Current Visit: Yes Status: Acute Code(s): R53.1 - WEAKNESS (5) HTN (hypertension) Current Visit: Yes Status: Chronic Code(s): I10 - ESSENTIAL (PRIMARY) HYPERTENSION (6) Sleep apnea Current Visit: Yes Status: Chronic Code(s): G47.30 - SLEEP APNEA, UNSPECIFIED (7) Type II diabetes mellitus Current Visit: Yes Status: Chronic (8) Hypothyroidism Current Visit: Yes Status: Chronic Code(s): E03.9 - HYPOTHYROIDISM, UNSPECIFIED (9) Pituitary tumor Current Visit: Yes Status: Chronic Assessment & Plan: (1) UTI (urinary tract infection) Current Visit: Yes Status: Acute Assessment & Plan: - UC pending from OP - UA reviewed - Levaquin - Complicated UTI as has repeat infections - Would benefit from urology OP f/u - Old culture results/ labs reviewed - CBC, CMP reviewed 11/01 - UC + E-coli and perez-sensitive - Continue Levaquin OP (2) Dizziness Current Visit: Yes Status: Acute Assessment & Plan: - CT head: Normal aging brain including atrophy and degenerative microischemia. No new/acute intracranial abnormalities. - CBC, CMP - reviewed - PT/OT eval - UA pending - TSH - Consider MRI - New onset heart murmur- see plan - RA 95% 10/31 - Resolved Code(s): R42 - DIZZINESS AND GIDDINESS (3) Heart murmur Current Visit: Yes Status: Acute Assessment & Plan: - New onset - Echo- EF 61% with mild diastolic dysfunction - Aortic Code(s): R01.1 - CARDIAC MURMUR, UNSPECIFIED (4) Weakness Current Visit: Yes Status: Acute Assessment & Plan: - PT/OT eval - See above plans 10/31 - Improved today - CBC, CMP reviewed 11/01 - Resolved - up and walking w/o concerns, independent Code(s): R53.1 - WEAKNESS (5) HTN (hypertension) Current Visit: Yes Status: Chronic Assessment & Plan: - BP stable - Continue home meds - BP meds held - will continue to hold OP and f/u with PCP as when to resume - Keep a log of BP readings Code(s): I10 - ESSENTIAL (PRIMARY) HYPERTENSION (6) Sleep apnea Current Visit: Yes Status: Chronic Assessment & Plan: - Cpap at night Code(s): G47.30 - SLEEP APNEA, UNSPECIFIED (7) Type II diabetes mellitus Current Visit: Yes Status: Chronic Qualifiers: Diabetes mellitus medical terminologist insulin use: without usp use Diabetes mellitus complication status: without complication Qualified Code(s): E11.9 - Type 2 diabetes mellitus without complications Assessment & Plan: - Carb consistent diet - Continue metformin - A1C 08/28/25- 5.87- Controlled (8) Hypothyroidism Current Visit: Yes Status: Chronic Assessment & Plan: - TSH normal - Continue synthroid Code(s): E03.9 - HYPOTHYROIDISM, UNSPECIFIED (9) Pituitary tumor Current Visit: Yes Status: Chronic Assessment & Plan: - Pt has an upcoming appointment in [place] for further evaluation (10) Dehydration Current Visit: Yes Status: Acute Assessment & Plan: - Anion gap 16.7 - Advised pt not to drink so much tea, encouraged water D/C plan of care: > 35 minutes * If ok with daughter will d/c today - New med Levaquin Code(s): E86.0 - DEHYDRATION - Discharge Discharge Date: 11/01/25 Disposition: Home, Self-Care Condition: Stable Prescriptions: Continue Amlodipine Besylate 5 mg [Norvasc 5 mg] 2.5 mg PO BID Metformin HCl 500 mg [Glucophage 500 MG] 500 mg PO DAILY Losartan Potassium 100 mg PO DAILY Levothyroxine Sodium 100 Mcg [Synthroid 100 Mcg] 125 mcg PO DAILY HydrALAzine HCL 25 MG TAB [Apresoline 25 MG TABLET] 50 mg PO BID Ergocalciferol (Vitamin D2) [Vitamin D2] 50,000 cap PO DAILY Carvedilol 12.5 mg [Coreg 12.5 mg] 6.25 mg PO BID Raloxifene HCl 60 mg PO DAILY Pramipexole Di-HCl 0.5 mg [Mirapex 0.5 MG Tablet] 0.25 mg PO DAILY [place]-3/Dha/Epa/Fish Oil [Fish Oil 1,000 mg Softgel] 1 each PO DAILY Duloxetine HCl 60 mg PO DAILY Mecobalamin [B12 Active] 1 tab PO DAILY Spironolactone 25 mg [Aldactone 25 MG] 25 mg PO DAILY Memantine HCl 10 mg PO BID Donepezil HCl 10 mg [Aricept 10 MG] 10 mg PO DAILY Potassium Chloride Tab* [Klor Con] 10 meq PO DAILY Mupirocin Calcium [Mupirocin] 15 gm TP BID Gabapentin 100 mg PO DAILY PRN PRN Reason: Pain Instructions: Dealing with Low Blood Pressure from the Drugs You Take, Urinary tract infections in adults Additional Instructions: Hold all BP meds until you follow up with Dr. Contreras. Keep a log of blood pressure readings daily and take to appointment. Follow up with: SEVERINO CONTRERAS DO [Primary Care Provider, [facility]ILY [facility]ACTICE]
[2025-11-01 11:57] VITALS: BP 116/59; PULSE 78; TEMP 97.8; O2SAT 93
[2025-11-01 12:01] LABS: Calcium 9.2 mg/dL (8.4-10.2); Carbon Dioxide 29.0 mmol/L (22-30); Creatinine 1 1.0 mg/dL (0.52-1.04); EST GLOMERULAR FILTRATION RATE 57.0 ML/MIN; Glucose 119.0 mg/dL (74-106); Potassium 3.9 mmol/L (3.5-5.1)
== END 2025-11-01 15:58 | disposition home or self-care (01) ==
LOC: MED SURG 11:30
PROVIDERS: ADMIT Internal Medicine; ATTEND Internal Medicine
DX: N39.0 Urinary tract infection, site not specified (principal); R42 Dizziness and giddiness; R01.1 Cardiac murmur, unspecified; R53.1 Weakness; I10 Essential (primary) hypertension; G47.30 Sleep apnea, unspecified; E11.9 Type 2 diabetes mellitus without complications; E03.9 Hypothyroidism, unspecified; B96.20 Unspecified Escherichia coli [E. coli] as the cause of diseases classified elsewhere; E86.0 Dehydration; E78.5 Hyperlipidemia, unspecified; Z79.899 Other long term (current) drug therapy
CPT/HCPCS: 36415; 70450; 71046; 80048; 80053; 82947; 83880; 84443; 85027; 93005; 93268; 93306; 97161; G0378; Q3014